=== PATIENT | female | born 1970 | race Caucasian/White ===

== ENCOUNTER 2024-04-25 06:30 | Emergency (ER) | payer OTHER ==
[~2024-04-25] VITALS: Ht 157.5 cm; Wt 85.5 kg
[2024-04-25] MEDS ORDERED: IBUPROFEN 800 MG TAB PO ONE (07:30)
[2024-04-25 08:17] VITALS: BP 126/78
== END 2024-04-25 08:18 | disposition other institution, planned readmission (95) ==
LOC: ED 06:30
DX: S80.02XA Contusion of left knee, initial encounter (principal); X58.XXXA Exposure to other specified factors, initial encounter; Q60.0 Renal agenesis, unilateral; Z88.0 Allergy status to penicillin; Z88.5 Allergy status to narcotic agent; Z53.29 Procedure and treatment not carried out because of patient's decision for other reasons
CPT/HCPCS: 73560; 99283; A9270